=== PATIENT | male | born 1970 | race Caucasian/White ===

== ENCOUNTER 2017-11-10 15:05 | Emergency (ER) | payer MEDICARE, OTHER ==
[~2017-11-10] VITALS: Ht 182.9 cm; Wt 104.3 kg
== END 2017-11-10 16:41 | disposition home or self-care (01) ==
LOC: ED 15:05
DX: E86.0 Dehydration (principal); B20 Human immunodeficiency virus [HIV] disease; Z87.891 Personal history of nicotine dependence
CPT/HCPCS: 96360; 99283; J7030

== ENCOUNTER 2020-09-14 14:30 | Emergency (ER) | payer MEDICARE, OTHER ==
[~2020-09-14] VITALS: Ht 182.9 cm; Wt 102.1 kg
[~2020-09-14 14:30] MED LIST: CITALOPRAM HBR20 MG PO; HYDROXYZINE HCL25 MG PO; KEFLEX500 MG PO; NORCO 7.5-3251 EACH PO; PREZISTA800 MG PO; RITONAVIR100 MG PO; TIVICAY50 MG PO; TRAMADOL HCL50 MG PO; VALACYCLOVIR1000 MG PO; VENTOLIN HFA18 GM INH
[2020-09-14] MEDS ORDERED: PREZCOBIX 8001 EACH PO (16:36)
[2020-09-14] MEDS ORDERED: BIKTARVY 50-201 EACH PO (16:36)
[2020-09-14] MEDS ORDERED: MECLIZINE HCL25 MG PO (20:52)
== END 2020-09-14 21:04 | disposition home or self-care (01) ==
LOC: ED 14:30
DX: R42 Dizziness and giddiness (principal); Z21 Asymptomatic human immunodeficiency virus [HIV] infection status; Z88.2 Allergy status to sulfonamides; Z88.1 Allergy status to other antibiotic agents; Z79.899 Other long term (current) drug therapy
CPT/HCPCS: 80053; 85025; 99284

== ENCOUNTER 2021-03-11 16:34 | Emergency (ER) | payer MEDICARE, OTHER ==
[~2021-03-11] VITALS: Ht 182.9 cm; Wt 104.3 kg
[~2021-03-11 16:34] MED LIST changes: +BIKTARVY 50-201 EACH PO; +MECLIZINE HCL25 MG PO; +PREZCOBIX 8001 EACH PO
[2021-03-11] MEDS ORDERED: ONDANSETRON ODT8 MG PO (20:16)
== END 2021-03-11 20:34 | disposition home or self-care (01) ==
LOC: ED 16:34
DX: K52.9 Noninfective gastroenteritis and colitis, unspecified (principal); Z21 Asymptomatic human immunodeficiency virus [HIV] infection status; Z88.2 Allergy status to sulfonamides
CPT/HCPCS: 80053; 81001; 83690; 83735; 85025; 96374; 99284-25; J2405; J7030

== ENCOUNTER 2021-05-19 14:29 | Emergency (ER) | payer MEDICARE, OTHER ==
[~2021-05-19] VITALS: Ht 182.9 cm; Wt 97.3 kg
[~2021-05-19 14:29] MED LIST changes: +ONDANSETRON ODT8 MG PO
[2021-05-19] MEDS ORDERED: CEPHALEXIN500 M1 PO (16:37)
== END 2021-05-19 16:48 | disposition home or self-care (01) ==
LOC: ED 14:29
DX: S30.93XA Unspecified superficial injury of penis, initial encounter (principal); N48.22 Cellulitis of corpus cavernosum and penis; Z21 Asymptomatic human immunodeficiency virus [HIV] infection status; Z88.8 Allergy status to other drugs, medicaments and biological substances; Z79.899 Other long term (current) drug therapy; X58.XXXA Exposure to other specified factors, initial encounter
CPT/HCPCS: 99283; A9270

== ENCOUNTER 2021-05-21 03:54 | Emergency (ER) | payer MEDICARE, OTHER ==
[~2021-05-21] VITALS: Ht 182.9 cm; Wt 99.8 kg
[~2021-05-21 03:54] MED LIST changes: +CEPHALEXIN500 M1 PO
--- OUTSIDE RECORDS SUMMARY | 2021-05-21 04:02 | XMS ---
PreManage Notification: SCARLETT BELLA Security Final Assembly Inspector Events No recent Security Events currently on file CRITERIA MET - [facility] - 2 Visits in 30 Days CARE PROVIDERS DUSTY ANDERSON Family [facility] Current PHONE: Unknown [facility] 07/22/2015-Current PHONE: Unknown Thania has no Care Guidelines for this patient. Thien VISIT COUNT (12 MO.) [address] [place] [address] TOTAL 4 NOTE: Visits indicate total known visits. ED/UCC VISIT TRACKING (12 MO.) 05/21/2021 03:54 [facility] TYPE: Emergency COMPLAINT: - RECTAL PAIN 05/19/2021 14:30 [facility] TYPE: Emergency COMPLAINT: - GENITAL PROBLEM 03/11/2021 16:35 [facility] TYPE: Emergency COMPLAINT: - ABDOMINAL PAIN DIAGNOSES: - Allergy status to sulfonamides - Noninfective gastroenteritis and colitis, unspecified - Generalized abdominal pain 09/14/2020 14:[address] [facility] TYPE: Emergency COMPLAINT: - DIZZY, LIGHT SENSITIVE DIAGNOSES: - Allergy status to other antibiotic agents - Dizziness and giddiness - Other roasterman (current) drug therapy - Allergy status to sulfonamides INPATIENT VISIT TRACKING (12 MO.) No inpatient visits to display in this time frame [email or web address]
[2021-05-21] MEDS ORDERED: DIBUCAINE28 GM PR (04:18)
[2021-05-21] MEDS ORDERED: ANUSOL-HC30 GM PR (04:18)
[2021-05-21] MEDS ORDERED: HYDROCODON-ACE1 EA10 PO (04:18)
[2021-05-21] MEDS ORDERED: COLACE100 MG PO (04:18)
== END 2021-05-21 04:31 | disposition home or self-care (01) ==
LOC: ED 03:54
DX: K64.4 Residual hemorrhoidal skin tags (principal); N48.5 Ulcer of penis; Z21 Asymptomatic human immunodeficiency virus [HIV] infection status; F43.10 Post-traumatic stress disorder, unspecified; Z88.2 Allergy status to sulfonamides; Z88.1 Allergy status to other antibiotic agents; Z79.899 Other long term (current) drug therapy
CPT/HCPCS: 99283

== ENCOUNTER 2022-05-27 21:07 | Emergency (ER) | payer MEDICARE, OTHER ==
[~2022-05-27] VITALS: Ht 182.9 cm; Wt 100.0 kg
[~2022-05-27 21:07] MED LIST changes: +ANUSOL-HC30 GM PR; +COLACE100 MG PO; +DIBUCAINE28 GM PR; +HYDROCODON-ACE1 EA10 PO
[2022-05-27] MEDS ORDERED: HYDROCODON-ACE1 EA10 PO (21:34)
[2022-05-27] MEDS ORDERED: DOXYCYCLINE HY100 MG PO (21:34)
[2022-05-27] MEDS ORDERED: CLEOCIN HCL300 MG PO (21:34)
== END 2022-05-27 21:57 | disposition home or self-care (01) ==
LOC: ED 21:07
DX: L02.31 Cutaneous abscess of buttock (principal); L03.317 Cellulitis of buttock; Z21 Asymptomatic human immunodeficiency virus [HIV] infection status; F32.A Depression, unspecified; F41.9 Anxiety disorder, unspecified; F43.10 Post-traumatic stress disorder, unspecified; Z86.19 Personal history of other infectious and parasitic diseases; Z88.2 Allergy status to sulfonamides; Z88.8 Allergy status to other drugs, medicaments and biological substances; Z79.899 Other long term (current) drug therapy
CPT/HCPCS: 99283; A9270

== ENCOUNTER 2022-07-31 16:42 | Inpatient (IN) | payer MEDICARE, OTHER ==
[~2022-07-31] VITALS: Ht 182.9 cm; Wt 92.0 kg
[~2022-07-31 16:42] MED LIST changes: +CLEOCIN HCL300 MG PO; +DOXYCYCLINE HY100 MG PO
--- NOTE | 2022-07-31 20:35 | NUR ---
PT ARRIVES TO THE FLOOR VIA STRETCHER, PT ABLE TO STAND AND TRANSFER TO THE BED INDEPENDENTLY. ADMISSION PROCESS COMPLETE. POC FOR THIS SHIFT DISCUSSED. PT ORIENTED TO ROOM AND CALL LIGHT USE, STATES UNDERSTANDING. WATER, JELLO, AND SANDWHICH BOX PROVIDED. PT DENIES FURTHER NEEDS AT THIS TIME. CALL LIGHT IN REACH.
[2022-07-31 20:36] VITALS: BP 122/66
--- NOTE | 2022-07-31 21:14 | EKG ---
[facility] [address] [place] [address] Signed Normal sinus rhythm Normal ECG No previous ECGs available Confirmed by Isaiah Almaraz MD () on 07/31/2022 9:14:43 PM Electronically Signed By: ISAIAH ALMARAZ MD 07/31/224 PATIENT NAME: SCARLETT BELLA Electrocardiogram DATE OF : 70 PHYSICIAN: ISAIAH ALMARAZ MD REPORT #: [id number] REPORT IS CONFIDENTIAL AND NOT TO BE RELEASED WITHOUT AUTHORIZATION
--- NOTE | 2022-07-31 22:00 | NUR ---
ASEESMENT COMPLETED. GCS 15, A&O X4. IV WNL, FLUSHED WELL. SKIN WPD. LUNGS CLEAR IN UPPER LOBES, COARSE IN LOWER LOBES. HEART TONES REGULAR. ABD SOFT, NONTENDER, BOWEL TONES ACTIVE. CMS INTACT. SNACKS PROVIDED. NO OTHER NEEDS. CALL LIGHT IN REACH.
--- NOTE | 2022-07-31 22:58 | NUR ---
POTASSIUM COMPLETED. NEXT BAG OF MED HUNG. PT REQUESTS SLEEP AID, PROVIDED. NO OTHER NEEDS AT THIS TIME. CALL LIGHT IN REACH.
--- NOTE | 2022-07-31 23:46 | NUR ---
NEW BAG OF IV MED PROVIDED. PT RESTING IN BED, EYES CLOSED. RR EVVEN, UNLABORED. CALL LIGHT IN REACH.
--- NOTE | 2022-08-01 00:44 | NUR ---
IV PUMP ALARMING. FINAL BAG OV IV POTASSIUM STARTED. PT RESTING IN BED, EYES CLOSED. RR EVEN, UNLABORED. CALL LIGHT IN REACH.
[2022-08-01 02:25] VITALS: BP 113/69
--- NOTE | 2022-08-01 04:14 | NUR ---
PT RESTING IN BED, EYES CLOSED. RR EVEN, UNLABORED. URINAL EMPTIED, SAMPLE SENT TO LAB. PT ON ROOM AIR. CALL LIGHT IN REACH.
[2022-08-01 05:24] VITALS: BP 110/58
--- NOTE | 2022-08-01 05:50 | NUR ---
VS AND I&O COMPLETED. SNACK AND ICE WATER PROVIDED. IV WNL. NO OTHER NEEDS. CALL LIGHT IN REACH.
--- NOTE | 2022-08-01 06:32 | NUR ---
PT RESTING IN BED, EYES CLOSED. RR EVEN, UNLABORED. CALL LIGHT IN REACH.
--- NOTE | 2022-08-01 07:30 | NUR ---
PATIENT ALERT AND ORIENTED. REPORT FROM Mike SERRANO RN. DENIES NEEDS AT THIS TIME. IV FLUIDS INFUSING. CALL LIGHT IN REACH, BED RAILS UP X2.
[2022-08-01 09:19] VITALS: BP 116/55
--- NOTE | 2022-08-01 09:22 | NUR ---
PATIENT IN BED AFTER MEAL. VITALS AND I/O'S COMPLETED. PT HAS NO OTHER REQUESTS AT THIS TIME. CALL LIGHT WITHIN REACH.
--- NOTE | 2022-08-01 10:42 | NUR ---
resting in bed, lying on right side. Respirations even and unlabored. Allowed to rest at this time. Call light in reach, bed rails up.
[2022-08-01] MEDS ORDERED: [UNRECOGNIZED DRUG - OTHER] PO (10:57)
--- NOTE | 2022-08-01 11:20 | NUR ---
PATIENT LYING IN BED ON LEFT SIDE. WATCHING TV. DENIES NEEDS AT THIS TIME. URINAL EMPTIED. EDUCATED ON USE OF IS WITH PROPER RETURN DEMONSTRATION OF USE. ENCOURAGED TO USE IS FREQUENTLY. VERBALIZES UNDERSTANDING.
--- NOTE | 2022-08-01 11:30 | NUR ---
MED REC COMPLETE
--- NOTE | 2022-08-01 12:57 | NUR ---
lying on right side in bed. Denies needs at this time. Call light in reach.
[2022-08-01 14:01] VITALS: BP 115/58
--- NOTE | 2022-08-01 14:03 | NUR ---
PATIENT IN BED AFTER MEAL. VITALS AND I/O'S COMPLETED. CALL LIGHT WITHIN REACH.
[2022-08-01 17:55] VITALS: BP 106/49
--- NOTE | 2022-08-01 19:10 | NUR ---
REPORT RECEIVED FROM PRATEEK ARROYO. PT LAYING IN BED AND RESPONDS WHEN ADDRESSED. URINAL EMPTIED. PT DENIES ANY OTHER NEEDS AT THIS TIME. CALL LIGHT IN REACH.
[2022-08-01 20:05] VITALS: BP 120/69
--- NOTE | 2022-08-01 20:13 | NUR ---
IN TO ROUND ON PT. JUDY, RT IN ROOM. PT DENIES ANY PAIN AT THIS TIME. PT DENEIS ANY NAUSEA AT THIS TIME. MEDICATION ADMINISTERED, SEE MAR. VITALS AND I&Os COMPLETE. ASSESSMENT COMPLETE. LUNG SOUNDS CLEAR IN RUL, RLL. DIMINISHED IN SALINA AND LLL. CRACKLES IN LLL. BOWEL TONES ACTIVE. PT DENIES TENDERNESS WITH ABD PALPATION. FRESH ICE WATER PROVIDED. PT DENIES ANY NEEDS AT THIS TIME. CALL LIGHT IN REACH.
--- NOTE | 2022-08-01 21:39 | NUR ---
PT REQUESTS A SHOWER, SUPPLIES SET UP. IV COVERED. LINENS CHANGED. NO OTHER NEEDS AT THIS TIME. PT INSTRUCTED TO USE CALL LIGHT WHEN FINISHED WITH SHOWER.
--- NOTE | 2022-08-01 22:24 | NUR ---
IN TO ROUND ON PT. PT SITTING UP IN BED WATCHING TV. PT RESPONDS WHEN ADDRESSED. PRN MELATONIN ADMINISTERED, SEE MAR. WATER PROVIDED. PT DENIES ANY OTHER NEEDS AT THIS TIME. CALL LIGHT IN REACH. IV INFUSING WNL.
--- NOTE | 2022-08-01 23:50 | NUR ---
IN TO ANSWER CALL LIGHT. IV PUMP ALARMING, RESOLVED. NEW BAG OF FLUID STARTED, SEE MAR. PT RESTING IN BED WITH EYES CLOSED. RR EVEN AND UNLABORED. NO NEEDS IDENTIFIED AT THIS TIME. CALL LIGHT IN REACH.
[2022-08-02 04:41] VITALS: BP 118/69
--- NOTE | 2022-08-02 04:46 | NUR ---
IN TO ROUND ON PT. PT RESTING IN BED WITH EYES CLOSED. RR EVEN AND UNLABORED. PT AWAKENS WHEN ADDRESSED. VITALS AND I&Os COMPLETE. ASSESSMENT COMPLETE. PT DENIES PAIN AT THIS TIME. PT DENIES NAUSEA AT THIS TIME. LUNG SOUNDS CLEAR. BOWEL TONES ACTIVE. URINAL EMPTIED. PT DENIES ANY NEEDS AT THIS TIME. CALL LIGHT IN REACH. IV INFUSING WNL.
--- NOTE | 2022-08-02 07:30 | NUR ---
REPORT RECEIVED FROM JANITOR RN, ALL QUESTIONS ANSWERED.
--- NOTE | 2022-08-02 08:35 | NUR ---
MORNING ASSESSMENT COMPLETE. PT SITTING UP IN BED EATING BREAKFAST. CLEAR LUNG SOUNDS, ON RA. PT DENIES PAIN OR NEEDS AT THIS TIME. CALL LIGHT IN REACH.
[2022-08-02] MEDS ORDERED: CEFPODOXIME PR200 MG PO (09:05)
[2022-08-02 09:55] VITALS: BP 120/59
--- NOTE | 2022-08-02 09:56 | NUR ---
PATIENT IN BED AFTER MEAL. VITALS AND I/O'S COMPLETED. URINAL EMPTIED. PATIENT HAS NO OTHER REQUESTS AT THIS TIME, CALL LIGHT WITHIN REACH.
== END 2022-08-02 11:06 | disposition home or self-care (01) | DRG 871 ==
LOC: ED 16:42 → MS 19:36
PROVIDERS: ADMIT Family Medicine; ATTEND Family Medicine
DX: A40.3 Sepsis due to Streptococcus pneumoniae (principal); J13 Pneumonia due to Streptococcus pneumoniae; J18.9 Pneumonia, unspecified organism; J96.01 Acute respiratory failure with hypoxia; J45.909 Unspecified asthma, uncomplicated; E87.6 Hypokalemia; F32.A Depression, unspecified; F41.9 Anxiety disorder, unspecified; F43.10 Post-traumatic stress disorder, unspecified; Z20.822 Contact with and (suspected) exposure to COVID-19; Z21 Asymptomatic human immunodeficiency virus [HIV] infection status; Z98.890 Other specified postprocedural states; Z88.2 Allergy status to sulfonamides; Z79.899 Other long term (current) drug therapy
CPT/HCPCS: 36415; 71045; 80053; 81001; 83605; 83735; 84100; 85025; 87040; 87186; 87449; 87502; 87899; 94640; 94760; 96365; 96375; 99285-25; A9270; C9803; J0456; J0696; J1650; J3480; J7030; J7060; J7121; U0003